=== PATIENT | female | born 1945 | race Caucasian/White ===

== ENCOUNTER → 2017-02-23 | Outpatient (CLI) | payer MEDICARE ==
[~2017-02-23] MED LIST: CALTTAB5 PO; COUM5TAB PO; DIPH1TAB36 PO; FOSA70TA PO; KONS520C PO; LEVO100T4 PO; NORC7.5T PO; OMEG120017 PO; OSTETAB2 PO; PROT40TA PO; RED600TA PO; ZOLP10TA3 PO
--- NOTE | 2017-02-23 15:44 | EKG ---
Date Performed: 02/23/2017 Time Performed: 10:07:58 PTAGE: 71 years EKG: Sinus rhythm . Poor R wave progression - probable normal variant Anterior T wave changes are nonspecific Low QRS v oltages in precordial leads Borderline ECG NO PREVIOUS TRACING DOCTOR: Karime Vizcaino Interpretating Date/Time 02/23/2017 15:43:04
== END ==
LOC: HCAV 09:56
PROVIDERS: ATTEND Orthopaedic Surgery Orthopaedic Surgery of the Spine
DX: Z01.810 Encounter for preprocedural cardiovascular examination (principal)
CPT/HCPCS: 93005

== ENCOUNTER 2017-03-05 12:24 | Inpatient (IN) | payer MEDICARE ==
[~2017-03-05] VITALS: Ht 157.5 cm; Wt 71.6 kg
[2017-03-05] VITALS (17 sets, daily range): BP systolic 105–212; BP diastolic 56–107; PULSE 53–88; RESP 16–32; TEMP 98–98.7; O2SAT 95–100
[2017-03-05] MEDS ORDERED: SODIUM CHLORIDE 0.9% FLUSH 10 ML FLUSH IVF PRN (12:30)
--- NOTE | 2017-03-05 12:30 | PD ---
HPI Chief Complaint: PALPITATIONS Time Seen by Provider: 12:27 Travel History International Travel<30 days: No Contact w/Intl Traveler<30days: No Traveled to known affect area: No History of Present Illness HPI PATIENT HAS BEEN EXPERIENCING SOME HEART RACING SENSATION ALONG CHEST HEAVINESS AND NOTED A HIGH BLOOD PRESSURE ON HER HOME MONITOR SO DECIDED TO COME IN AND BE EVALUATED. CHEST HEAVINESS SUBSTERNAL RADIATING TO BACK, 10/03, NO SYNCOPE, NO ALLEVIATING/AGGRAVATING FACTORS. 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 Past Medical History Cancer: No Cardiovascular Problems: Yes High Cholesterol: Yes Diabetes: No Endocrine: Yes Genitourinary: No Hepatitis: Yes (HEP A 2005) Hiatal Hernia: No Immune Disorder: Yes (FIBROMYALGIA) Musculoskeletal: Yes (OSTEOARTHRITIS, FIBROMYALGIA) Neurologic: No Psychiatric: No Reproductive: No Respiratory: No Thyroid Disease: Yes Past Surgical History Abdominal Surgery: Yes (LAP CHOLECYSTECTOMY 2009) AICD: No Gynecologic Surgery: Yes (MISCARRIAGES WITH D & C X 2, TUBAL LIGATION) Joint Replacement: Yes (R TOTAL KNEE) Pacemaker: No Thoracic Surgery: Yes (BREAST REDUCTION 1998) Social History Tobacco Use: No Substance Use: No Allergies-Medications (Allergen,Severity, Reaction): Coded Allergies: penicillin G (Unverified Allergy, Intermediate, HIVES, 11/08/16) atorvastatin (Unverified Adverse Reaction, Intermediate, SEVERE MUSCLE ACHES, 11/08/16) ALL STATINS Uncoded Allergies: STATINS (Adverse Reaction, Severe, SEVERE MUSCLE ACHES, 01/17/13) 01/17 VERIFIED Reported Meds & Prescriptions Reported Meds & Active Scripts Active Reported Ambien (Zolpidem Tartrate) 10 Mg Tab 10 Mg PO HS PRN Levothyroxine (Levothyroxine Sodium) 88 Mcg Tab 88 Mcg PO DAILY Protonix (Pantoprazole Sodium) 40 Mg Tab 40 Mg PO DAILY Review of Systems Except as stated in HPI: all other systems reviewed are Neg General / Constitutional: No: Fever Eyes: No: Visual changes HENT: No: Headaches Cardiovascular: Positive: Chest Pain or Discomfort, Palpitations Respiratory: No: Shortness of Breath Gastrointestinal: No: Abdominal Pain Genitourinary: No: Dysuria Musculoskeletal: No: Pain Skin: No Rash Neurologic: No: Weakness Psychiatric: No: Depression Endocrine: No: Polydipsia Hematologic/Lymphatic: No: Easy Bruising Physical Exam Narrative GENERAL: SKIN: Warm and dry. HEAD: Atraumatic. Normocephalic. EYES: Pupils equal and round. No scleral icterus. No injection or drainage. ENT: No nasal bleeding or discharge. Mucous membranes pink and moist. NECK: Trachea midline. No JVD. CARDIOVASCULAR: Regular rate and rhythm. RESPIRATORY: No accessory muscle use. Clear to auscultation. Breath sounds equal bilaterally. GASTROINTESTINAL: Abdomen soft, non-tender, nondistended. MUSCULOSKELETAL: Extremities without clubbing, cyanosis, or edema. No obvious deformities. NEUROLOGICAL: Awake and alert. No obvious cranial nerve deficits. Motor grossly within normal limits. Five out of 5 muscle strength in the arms and legs. Normal speech. PSYCHIATRIC: Appropriate mood and affect; insight and judgment normal. Data Data Last Documented VS Vital Signs Date Time Temp Pulse Resp B/P (MAP) Pulse Ox O2 Delivery O2 Flow Rate FiO2 03/05/17 14:10 68 18 181/90 (120) 96 Room Air 03/05/17 12:28 98.0 Orders Orders Electrocardiogram (03/05/17 12:27) B-Type Natriuretic Peptide (03/05/17 12:27) Ckmb (Isoenzyme) Profile (03/05/17 12:27) Complete Blood Count With Diff (03/05/17 12:27) Comprehensive Metabolic Panel (03/05/17 12:27) D-Dimer (03/05/17 12:27) Prothrombin Time / Inr (Pt) (03/05/17 12:27) Act Partial Throm Time (Ptt) (03/05/17 12:27) Troponin I (03/05/17 12:27) Lipase (03/05/17 12:27) Chest, Single Ap (03/05/17 12:27) Ecg Monitoring (03/05/17 12:27) Bilateral Bp Monitoring (03/05/17 12:27) Iv Access Insert/Monitor (03/05/17 12:27) Oximetry (03/05/17 12:27) Oxygen Administration (03/05/17 12:27) Sodium Chloride 0.9% Flush (Ns Flush) (03/05/17 12:30) Aspirin Chew (Aspirin Chew) (12/10/17 12:45) Morphine Inj (Morphine Inj) (03/05/17 12:45) Nitroglycerin 2% Oint (Nitroglycerin 2% (03/05/17 12:45) Metoprolol Tartrate Inj (Lopressor Inj) (03/05/17 12:45) Cta Thor Abd Aorta W Iv C W3d (03/05/17 12:44) Iohexol 350 Inj (Omnipaque 350 Inj) (03/05/17 13:38) Electrocardiogram (03/05/17 13:55) Morphine Inj (Morphine Inj) (03/05/17 14:15) Metoprolol Tartrate Inj (Lopressor Inj) (03/05/17 14:15) Admit To Inpatient (03/05/17 ) Vital Signs (Adult) RENETTA.Q4H (03/05/17 14:21) Station Repairer / Telemetry RENETTA.Q8H (03/05/17 14:21) Inpatient Certification (03/05/17 ) Admit Order (Ed Use Only) (03/05/17 14:26) Labs Laboratory Tests Test 03/05/17 12:48 White Blood Count 7.3 TH/MM3 Red Blood Count 4.92 MIL/MM3 Hemoglobin 13.6 GM/DL Hematocrit 43.0 % Mean Corpuscular Volume 87.3 FL Mean Corpuscular Hemoglobin 27.7 PG Mean Corpuscular Hemoglobin Concent 31.7 % Red Cell Distribution Width 14.9 % Platelet Count 277 TH/MM3 Mean Platelet Volume 8.4 FL Neutrophils (%) (Auto) 70.6 % Lymphocytes (%) (Auto) 21.0 % Monocytes (%) (Auto) 7.9 % Eosinophils (%) (Auto) 0.1 % Basophils (%) (Auto) 0.4 % Neutrophils # (Auto) 5.2 TH/MM3 Lymphocytes # (Auto) 1.5 TH/MM3 Monocytes # (Auto) 0.6 TH/MM3 Eosinophils # (Auto) 0.0 TH/MM3 Basophils # (Auto) 0.0 TH/MM3 CBC Comment DIFF FINAL Differential Comment Prothrombin Time 10.7 SEC Prothromb Time International Ratio 1.1 RATIO Activated Partial Thromboplast Time 22.9 SEC D-Dimer Quantitative (PE/DVT) 0.36 MG/L FEU Blood Urea Nitrogen 13 MG/DL Creatinine 0.80 MG/DL Random Glucose 83 MG/DL Total Protein 7.8 GM/DL Albumin 3.9 GM/DL Calcium Level 9.0 MG/DL Alkaline Phosphatase 61 U/L Aspartate Amino Transf (AST/SGOT) 19 U/L Alanine Aminotransferase (ALT/SGPT) 31 U/L Total Bilirubin 0.2 MG/DL Sodium Level 141 MEQ/L Potassium Level 3.6 MEQ/L Chloride Level 106 MEQ/L Carbon Dioxide Level 28.4 MEQ/L Anion Gap 7 MEQ/L Estimat Glomerular Filtration Rate 71 ML/MIN Total Creatine Kinase 81 U/L Troponin I LESS THAN 0.02 NG/ML B-Type Natriuretic Peptide 156 PG/ML Lipase 210 U/L MDM Medical Decision Making Medical Screen Exam Complete: Yes Emergency Medical Condition: Yes Medical Record Reviewed: Yes Interpretation(s) NSR 72, PAC'S, NONSPEC STT CHANGES, NO MAJOR STEMI PATTERN REPEAT EKG AT TIME OF 08/03 CP 1405: NSR 66, PAC'S, NO STEMI PATTERN Differential Diagnosis DYSRYTHMIA V CA V NONSTEMI V PNA V PTX V PE Narrative Course PATIENT INITIALLY WAS PAIN FREE AFTER NTG/MORPHINE COMBO HOWEVER HAD REPEAT EPISODE OF CHEST PAIN, REPEAT EKG DID NOT SHOW ANY STEMI PATTERN, PATIENT WAS REPEATED METOPROLOL AND MORPHINE ACHIEVING A DECREASE IN PAIN Critical Care Narrative CRITICAL CARE NOTE: With evaluation of the patient, labs, EKG, receipt of radiologic studies, administration of medications, reevaluation the patient and discussion of the patient with the admitting physicians, the total critical care time was [30] minutes. Time to perform other separately billable procedures was not included in the critical care time. Diagnosis Primary Impression: PALPITATIONS Additional Impressions: CP R/O CA Hypertensive urgency Admitting Information Admitting Physician Requests: Observation Ty Mcpherson MD Mar 05, 2017 12:30
[2017-03-05] MEDS ORDERED: LEVO88TA2 PO (12:36)
[2017-03-05] MEDS ORDERED: PROT40TA PO (12:36)
[2017-03-05] MEDS ORDERED: AMBI10TA PO (12:37)
--- NOTE | 2017-03-05 12:42 | RADRPT ---
EXAM DATE/TIME: 03/05/2017 12:33 [facility] COMPARISON: No previous studies available for comparison. INDICATIONS : Chest pain, elevated blood pressure MEDICAL HISTORY : None. SURGICAL HISTORY : Total knee replacement, right. ENCOUNTER: Initial ACUITY: 2 days PAIN SCORE: 3/10 LOCATION: Bilateral chest FINDINGS: A single view of the chest demonstrates the lungs to be symmetrically aerated without evidence of mas s, infiltrate or effusion. The cardiomediastinal contours are unremarkable. Osseous structures are intact. CONCLUSION: No evidence of acute cardiopulmonary disease. Andrae Fuller MD on March 05, 2017 at 12:40 Board Certified Radiologist. This report was verified electronically.
[2017-03-05] MEDS ORDERED: NITROGLYCERIN 2% OINT 1 GM PACKET TOP ONE (12:45)
[2017-03-05] MEDS ORDERED: MORPHINE SULFATE 4 MG/ML INJ IV PUSH ONE ×2 (12:45→14:15)
[2017-03-05] MEDS ORDERED: ASPIRIN 81 MG CHEW TAB PO ONE (12:45)
[2017-03-05] MEDS ORDERED: METOPROLOL TARTRATE 5 MG/5 ML VIAL IV PUSH ONE ×2 (12:45→14:15)
[2017-03-05 12:58] LABS: AUTOMATED NEUTROPHIL # 5.2 TH/MM3 (1.8-7.7); BASOPHIL % 0.4 % (0.0-2.0); EOSINOPHIL % 0.1 % (0.0-4.0); HEMO FLAGS DIFF FINAL; LYMPHOCYTE # 1.5 TH/MM3 (1.0-4.8); MEAN CELL VOLUME 87.3 FL (80.0-100.0); MEAN CORPUSCULAR HEMOGLOBIN 27.7 PG (27.0-34.0); MEAN CORPUSCULAR HGB CONC 31.7 % (32.0-36.0); MONO % 7.9 % (0.0-8.0); NEUT % 70.6 % (16.0-70.0); PLATELET COUNT 277 TH/MM3 (150-450); RED BLOOD COUNT 4.92 MIL/MM3 (4.00-5.30); RED CELL DISTRIBUTION WIDTH 14.9 % (11.6-17.2); WHITE BLOOD COUNT 7.3 TH/MM3 (4.0-11.0)
[2017-03-05 13:00] LABS: CHLORIDE 106 MEQ/L (98-107); POTASSIUM 3.6 MEQ/L (3.5-5.1); SODIUM (NA) 141 MEQ/L (136-145)
[2017-03-05 13:04] LABS: ANION GAP 7 MEQ/L (5-15); BICARBONATE 28.4 MEQ/L (21.0-32.0); BLOOD UREA NITROGEN 13 MG/DL (7-18)
[2017-03-05 13:07] LABS: ALT (GPT) 31 U/L (10-53); APTT (PATIENT) 22.9 SEC (24.3-30.1); AST (GOT) 19 U/L (15-37); GLOMERULAR FILTRATION RATE 71 ML/MIN (>89); INTERNATIONAL NORMALIZED RATIO 1.1 RATIO; PROTHROMBIN TIME - PATIENT 10.7 SEC (9.8-11.6)
[2017-03-05 13:08] LABS: TOTAL BILIRUBIN ADULT 0.2 MG/DL (0.2-1.0)
[2017-03-05 13:09] LABS: ALKALINE PHOSPHATASE 61 U/L (45-117)
[2017-03-05 13:11] LABS: CREATINE KINASE 81 U/L (26-192)
[2017-03-05] MEDS ORDERED: IOHEXOL 350 MG/ML 10 ML VIAL (for RAD DIAG) IVCONTRAST ONE (13:38)
--- NOTE | 2017-03-05 14:00 | RADRPT ---
EXAM DATE/TIME: 03/05/2017 13:18 [facility] COMPARISON: No previous studies available for comparison. INDICATIONS : Chest heaviness. Evaluate for aortic dissection. IV CONTRAST: 85 cc Omnipaque 350 (iohexol) IV RADIATION DOSE: 16.29 CTDIvol (mGy) MEDICAL HISTORY : Gastroesophageal reflux disease. Ulcers. Gastritis. SURGICAL HISTORY : Cholecystectomy. ENCOUNTER: Initial ACUITY: 1 day PAIN SCALE: 5/10 LOCATION: Left chest TECHNIQUE: Volumetric scanning was performed using a multi-row detector CT scanner. The data was post processed with a variety of visualization algorithms including full volume maximum intensity projection, multi -planar sliding thin slab reformation, curved planar reformation, and surface rendering techniques. Using automated exposure control and adjustment of the mA and/or kV according to patient size, radiat ion dose was kept as low as reasonably achievable to obtain optimal diagnostic quality images. DICOM format image data is available electronically for review and comparison. FINDINGS: LUNGS: There is no consolidation or pneumothorax. No concerning pulmonary nodule is visualized. No pleural fluid is present. MEDIASTINUM: No abnormally enlarged lymph nodes by CT criteria. No axillary or hilar abnormalities are identified. ABDOMEN: The liver and spleen are free of focal defects. The pancreas demonstrate no abnormality. The adrenal glands are normal. The kidneys demonstrate no evidence of solid renal mass or hydronephrosis. No free fluid or abdominal masses are identified. No para-aortic adenopathy is seen. Status post cholecystec johnny. PELVIS: No evidence of free fluid or pelvic mass. No abnormally enlarged inguinal or retroperitoneal lymph no tab are present. The bladder is unremarkable. THORACIC AORTA: The thoracic aortic root is normal with normal branching of the great vessels. There is no evidence of aneurysm or dissection. ABDOMINAL AORTA: The aorta is normal in caliber without aneurysm or dissection. The renal arteries are patent bilater ally. The proximal celiac and superior mesenteric arteries are patent and normal in diameter. PELVIC VESSELS: The internal iliac and external iliac vessels are patent without aneurysm or stenosis. CONCLUSION: Unremarkable examination. Specifically, no evidence of aortic dissection. Salo Jimenez MD on March 05, 2017 at 13:55 Board Certified Radiologist. This report was verified electronically.
[2017-03-05] MEDS ORDERED: niCARdipine INJ 25 MG in SODIUM CHLOR 0.9% 250 ML INJ 240 ML IV PRN (15:00)
[2017-03-05] MEDS ORDERED: SODIUM CHLORID 0.9% 500 ML INJ 500 ML IV ONE (15:00)
--- NOTE | 2017-03-05 15:03 | HHI.HP ---
[facility] Service [facility] Primary Care Physician Unknown Admission Diagnosis CP R/O [place], HYPERTENSIVE URGENCY Diagnoses: Chief Complaint: chest pressure, flushing Travel History International Travel<30 Days: No Contact w/Intl Traveler <30 Da: No Traveled to Known Affected Are: No History of Present Illness 71-year-old white female being admitted for hypertensive emergency and chest pressure. Patient was in her usual state of health until 3 days ago when she underwent her right knee arthroscopy. The next day she reports feeling a flushed sensation all throughout her face and upper torso; she also said that her face appeared red. She says she checked her blood pressure at home and the systolic was greater than 180. Over the next 2 days her blood pressures remained high including hitting the 200s systolic and she eventually developed some intermittent chest pressure that felt like an ache that radiated to her back; she took some aspirin to no further relief. She denies any nausea or vomiting. The emergency room, the patient's pressures were well over 200 systolic on multiple readings. She was given nitroglycerin with substantial relief of her chest pressure and morphine which completely knocked out her pain. She has also underwent an aorta CTA since emergency room doctor was somewhat concerned about a possible aortic dissection but this was negative. Review of Systems Except as stated in HPI: all other systems reviewed are Neg Past Family Social History Past Medical History Fibromyalgia Arthritis Past Surgical History Left knee surgery, right knee arthroscopy Allergies: Coded Allergies: penicillin G (Unverified Allergy, Intermediate, HIVES, 11/08/16) atorvastatin (Unverified Adverse Reaction, Intermediate, SEVERE MUSCLE ACHES, 11/08/16) ALL STATINS Uncoded Allergies: STATINS (Adverse Reaction, Severe, SEVERE MUSCLE ACHES, 01/17/13) 01/17 VERIFIED Family History Hypertension, strokes, macular degeneration Social History Denies smoking, any illicit drug use, reports very mild light occasional rare alcohol use Physical Exam Vital Signs Vital Signs Date Time Temp Pulse Resp B/P (MAP) Pulse Ox O2 Delivery O2 Flow Rate FiO2 03/05/17 14:10 68 18 181/90 (120) 96 Room Air 03/05/17 13:33 88 16 188/103 (131) 98 Room Air 03/05/17 12:38 88 16 209/99 (135) 99 Room Air 212/107 (142) 03/05/17 12:37 99 Room Air 03/05/17 12:37 100 Room Air 03/05/17 12:31 16 96 Room Air 03/05/17 12:28 98.0 80 16 209/99 (135) 96 Physical Exam VS: Afebrile GENERAL: Elderly white female, well-nourished, no acute distress SKIN: Warm and dry. EYES: Pupils equal and round. No scleral icterus. No injection or drainage. ENT: No nasal bleeding or discharge. Mucous membranes pink and moist. CARDIOVASCULAR: Regular rate and rhythm. no murmurs RESPIRATORY: No accessory muscle use. Clear to auscultation. GASTROINTESTINAL: Abdomen soft, non-tender, nondistended. Extremities: No clubbing, cyanosis, or edema. No obvious deformities. MUSCULOSKELETAL: No obvious deformities. grossly intact ROM with 5/5 strength in upper and lower extremities proximally. Has diffuse mild TTP over anterior chest wall BL which the pt attributes to her fibromyalgia NEUROLOGICAL: Awake and alert. No obvious cranial nerve deficits. No facial droop nor slurred speech noted. PSYCHIATRIC: Appropriate mood and affect; insight and judgment normal. Laboratory Laboratory Tests Test 03/05/17 12:48 White Blood Count 7.3 Red Blood Count 4.92 Hemoglobin 13.6 Hematocrit 43.0 Mean Corpuscular Volume 87.3 Mean Corpuscular Hemoglobin 27.7 Mean Corpuscular Hemoglobin Concent 31.7 Red Cell Distribution Width 14.9 Platelet Count 277 Mean Platelet Volume 8.4 Neutrophils (%) (Auto) 70.6 Lymphocytes (%) (Auto) 21.0 Monocytes (%) (Auto) 7.9 Eosinophils (%) (Auto) 0.1 Basophils (%) (Auto) 0.4 Neutrophils # (Auto) 5.2 Lymphocytes # (Auto) 1.5 Monocytes # (Auto) 0.6 Eosinophils # (Auto) 0.0 Basophils # (Auto) 0.0 CBC Comment DIFF FINAL Differential Comment Prothrombin Time 10.7 Prothromb Time International Ratio 1.1 Activated Partial Thromboplast Time 22.9 D-Dimer Quantitative (PE/DVT) 0.36 Blood Urea Nitrogen 13 Creatinine 0.80 Random Glucose 83 Total Protein 7.8 Albumin 3.9 Calcium Level 9.0 Alkaline Phosphatase 61 Aspartate Amino Transf (AST/SGOT) 19 Alanine Aminotransferase (ALT/SGPT) 31 Total Bilirubin 0.2 Sodium Level 141 Potassium Level 3.6 Chloride Level 106 Carbon Dioxide Level 28.4 Anion Gap 7 Estimat Glomerular Filtration Rate 71 Total Creatine Kinase 81 Troponin I LESS THAN 0.02 B-Type Natriuretic Peptide 156 Lipase 210 Result Diagram: 03/05/17 1248 03/05/17 1248 Caprini VTE Risk Assessment Caprini VTE Risk Assessment: Mod/High Risk (score >= 2) Caprini Risk Assessment Model Point Value = 1 Point Value = 2 Point Value = 3 Point Value = 5 Age 41-60 Minor surgery BMI > 25 kg/m2 Swollen legs Varicose veins or History of unexplained or recurrent spontaneous Oral contraceptives or hormone replacement Sepsis (< 1 month) Serious lung disease, including pneumonia (< 1 month) Abnormal pulmonary function Acute myocardial infarction Congestive heart failure (< 1 month) History of inflammatory bowel disease Medical patient at bed rest Age 61-74 Arthroscopic surgery Major open surgery (> 45 min) Laparoscopic surgery (> 45 min) Malignancy Confined to bed (> 72 hours) Immobilizing plaster cast Central venous access Age >= 75 History of VTE Family history of VTE Factor V Leiden Prothrombin [id number] Lupus anticoagulant Anticardiolipin antibodies Elevated serum homocysteine Heparin-induced thrombocytopenia Other congenital or acquired thrombophilia Stroke (< 1 month) Elective arthroplasty Hip, pelvis, or leg fracture Acute spinal cord injury (< 1 month) Prophylaxis Regimen Total Risk Factor Score Risk Level Prophylaxis Regimen 0-1 Low Early ambulation 2 Moderate Order ONE of the following: *Sequential Compression Device (SCD) *Heparin 5000 units SQ BID 3-4 Higher Order ONE of the following medications: *Heparin 5000 units SQ TID *Enoxaparin/Lovenox 40 mg SQ daily (WT < 150 kg, CrCl > 30 mL/min) *Enoxaparin/Lovenox 30 mg SQ daily (WT < 150 kg, CrCl > 10-29 mL/min) *Enoxaparin/Lovenox 30 mg SQ BID (WT < 150 kg, CrCl > 30 mL/min) AND/OR *Sequential Compression Device (SCD) 5 or more Highest Order ONE of the following medications: *Heparin 5000 units SQ TID (Preferred with Epidurals) *Enoxaparin/Lovenox 40 mg SQ daily (WT < 150 kg, CrCl > 30 mL/min) *Enoxaparin/Lovenox 30 mg SQ daily (WT < 150 kg, CrCl > 10-29 mL/min) *Enoxaparin/Lovenox 30 mg SQ BID (WT < 150 kg, CrCl > 30 mL/min) AND *Sequential Compression Device (SCD) Assessment and Plan Problem List: (1) Hypertensive emergency ICD Code: I16.1 - Hypertensive emergency (2) Chest pressure ICD Code: R07.89 - Other chest pain Assessment and Plan 71-year-old white female admitted for hypertensive emergency Hypertensive emergency with end organ damage being headache - Starting nicardipine drip and will start oral nifedipine - Cardiac telemetry Chest pressure - Most likely from elevated blood pressures - I independently reviewed EKG which is showing normal sinus rhythm with occasional PVCs - We'll trend troponins which are so far negative, we will make the patient. After midnight in case she has worsening of her pain or her pain is more argumentative for possible ACS at which point we will consider nuclear stress test tomorrow if warranted. - aspirin Diet Lovenox for DVT prevention Physician Certification 2 Midnight Certification Type: Admission for Inpatient Services Order for Inpatient Services The services are ordered in accordance with Medicare regulations or non- Medicare payer requirements, as applicable. In the case of services not specified as inpatient-only, they are appropriately provided as inpatient services in accordance with the 2-midnight benchmark. Estimated LOS (days): 2 2 days is the estimated time the patient will need to remain in the hospital, assuming treatment plan goals are met and no additional complications. Post-Hospital Plan: Home Emmanuel Schaffer MD Mar 05, 2017 15:03
[2017-03-05] MEDS ORDERED: ENOXAPARIN SODIUM 30 MG/0.3 ML SYRINGE SQ SCH (16:00)
[2017-03-05] MEDS ORDERED: CHLORHEXIDINE GLUCONATE 2 % 1 PACK (2 CLOTHS)(extra cloths) TOPICAL PRN (18:15)
[2017-03-05] MEDS: NIFEdipine 10 MG CAP PO SCH (19:05)
[2017-03-05] MEDS ORDERED: tylenol pm (19:16)
[2017-03-05] MEDS ORDERED: ACETAMINOPHEN 500 MG CPLT PO PRN (21:45)
[2017-03-05] MEDS ORDERED: ZOLPIDEM TARTRATE 5 MG TAB PO PRN (21:45)
[2017-03-05] MEDS ORDERED: diphenhydrAMINE HCL 25 MG CAP PO PRN (21:45)
[2017-03-06] VITALS (15 sets, daily range): BP systolic 104–193; BP diastolic 57–96; PULSE 52–80; RESP 14–36; TEMP 97.6–98.4; O2SAT 97
[2017-03-06] MEDS: NIFEdipine 10 MG CAP PO SCH (01:00)
[2017-03-06] MEDS ORDERED: CHLORHEXIDINE GLUCONATE 2 % 1 PACK (2 CLOTHS)(taper/protocol) TOPICAL SCH (04:00)
[2017-03-06] MEDS ORDERED: NIFEdipine 20 MG CAP PO SCH (09:00)
--- NOTE | 2017-03-06 12:08 | RADRPT ---
EXAM DATE/TIME: 03/06/2017 10:11 [facility] COMPARISON: No previous studies available for comparison. INDICATIONS : Substernal chest pain radiating to the back. Angina. DOSE: 26.7 mCi Tc99m Myoview at stress. 8.8 mCi Tc99m Myoview at rest. 0.4 mg Lexiscan STRESS SYMPTOMS: Dyspnea and chest pressure. EJECTION FRACTION: > 70% MEDICAL HISTORY : Hypercholesterolemia. Gastroesophageal reflux disease. SURGICAL HISTORY : Cholecystectomy. Total knee replacement, right. ENCOUNTER: Initial ACUITY: 1 day PAIN SCALE: 7/10 LOCATION: Substernal chest TECHNIQUE: The patient underwent pharmacologic stress with infusion of prescribed dose. Continuous ECG tracing was monitored during stress. Gated SPECT imaging was performed after stress and conventional SPECT i maging was performed at rest. The examination was performed on a SPECT/CT scanner, both attenuation and non-corrected datasets were reviewed. FINDINGS: DISTRIBUTION: The maximum perfused segment at stress is in the septal wall. PERFUSION STUDY: The pattern of perfusion at stress is within normal limits. GATED STUDY: There is intact wall motion and thickening without hypokinetic or dyskinetic segments. CONCLUSION: 1. No reversible perfusion defects to suggest ischemia. 2. Ejection fraction 70%. RISK CATEGORY: Low (<1% Annual Mortality Rate) Enrique Kelly MD on March 06, 2017 at 12:06 Board Certified Radiologist. This report was verified electronically.
[2017-03-06] MEDS ORDERED: NIFE10 PO (12:31)
--- NOTE | 2017-03-06 12:32 | HHI.DCPOC ---
Discharge Care Plan Diagnosis: (1) Hypertensive urgency (2) Chest pressure Goals to Promote Your Health * To prevent worsening of your condition and complications * To maintain your health at the optimal level Directions to Meet Your Goals Take your medications as prescribed Follow your dietary instruction Follow activity as directed Keep your appointments as scheduled Take your immunizations and boosters as scheduled If your symptoms worsen call your PCP, if no PCP go to Urgent Care Center or Emergency Room Smoking is Dangerous to Your Health. Avoid second hand smoke Call the 24-hour hour crisis hotline for domestic abuse at Dwayne Prince Mar 06, 2017 12:32
--- NOTE | 2017-03-06 13:07 | HHI.PR ---
Subjective Remarks Nursing denies any deterioration since last night. She actually never needed the nicardipine drip as her blood pressure remained stable. Patient says she still has a mild headache even though her blood pressure is much improved. Denies any nausea. Objective Vital Signs Date Time Temp Pulse Resp B/P (MAP) Pulse Ox O2 Delivery O2 Flow Rate FiO2 03/06/17 12:00 54 03/06/17 11:00 80 15 146/75 (98) 03/06/17 10:00 78 03/06/17 09:15 64 25 162/75 (104) 03/06/17 09:00 76 03/06/17 08:15 78 32 193/96 (128) 03/06/17 08:00 64 03/06/17 08:00 97.9 70 22 181/85 (117) 97 03/06/17 07:00 76 36 153/81 (105) 03/06/17 06:00 59 03/06/17 05:01 60 03/06/17 04:15 98.4 54 14 111/60 (77) 03/06/17 03:15 52 15 104/57 (73) 03/06/17 02:33 62 03/06/17 02:16 70 20 117/65 (82) 03/06/17 00:00 97.6 72 16 108/57 (74) 03/06/17 00:00 72 03/05/17 23:00 74 27 114/56 (75) 03/05/17 22:00 70 03/05/17 22:00 70 17 105/56 (72) 03/05/17 21:07 82 22 108/59 (75) 03/05/17 20:00 98.7 66 18 109/64 (79) 95 03/05/17 20:00 53 03/05/17 19:15 74 27 130/63 (85) 03/05/17 19:00 72 22 138/64 (88) 03/05/17 18:45 68 22 126/69 (88) 03/05/17 18:30 70 20 118/67 (84) 03/05/17 18:15 72 32 112/73 (86) 03/05/17 18:00 57 03/05/17 16:17 64 03/05/17 16:00 68 16 154/75 (101) 95 03/05/17 15:26 03/05/17 14:10 68 18 181/90 (120) 96 Room Air 03/05/17 13:33 88 16 188/103 (131) 98 Room Air I/O 03/05/17 03/05/17 03/05/17 03/06/17 03/06/17 03/06/17 07:00 15:00 23:00 07:00 15:00 23:00 Intake Total 1320 ml 120 ml Balance 1320 ml 120 ml Intake Oral 320 ml 120 ml IV Total 1000 ml # Voids 2 1 # Bowel Movements 0 Result Diagram: 03/05/17 1248 03/05/17 1248 Objective Remarks Heart sounds are regular rate and rhythm, no murmurs Unlabored breathing, clear lungs bilaterally White female in no acute distress A/P Assessment and Plan Hypertensive emergency has resolved Given atypical chest pressures - nuclear stress test was performed which was unremarkable. We'll give the patient naproxen for her mild headache and discharge her with close PCP follow-up to monitor her blood pressure while starting her on a new low dose calcium channel alanna. Patient has verbalized understanding. Patient has met maximum benefit from hospitalization and is clinically stable for discharge. Emmanuel Schaffer MD Mar 06, 2017 13:07
[2017-03-06] MEDS ORDERED: NAPROXEN 500 MG TAB PO ONE (13:30)
[2017-03-06] MEDS ORDERED: REGADENOSON INJ 0.4 MG/5 ML SYR IV ONE (14:29)
--- NOTE | 2017-03-06 19:00 | EKG ---
Date Performed: 03/05/2017 Time Performed: 12:29:57 PTAGE: 71 years EKG: Sinus rhythm WITH OCCASIONAL SUPRAVENTRICULAR PREMATURE COMPLEXES MINIMAL ST DEPRESSION BORDERLINE ECG PREVIOUS TRACING : 02/23/2017 10.07 Compared to prior tracing no significant change DOCTOR: Jeff Patel Interpretating Date/Time 03/06/2017 18:59:24
--- NOTE | 2017-03-06 19:01 | EKG ---
Date Performed: 03/05/2017 Time Performed: 14:05:32 PTAGE: 71 years EKG: Sinus rhythm WITH OCCASIONAL ECTOPIC PREMATURE COMPLEXES BORDERLINE ECG PREVIOUS TRACING : 03/05/2017 12.29 Compared to prior tracing no significant change DOCTOR: Jeff Patel Interpretating Date/Time 03/06/2017 19:00:40
--- NOTE | 2017-03-07 07:19 | TR ---
Date Performed: 03/06/2017 Time Performed: 10:36:02 DOCTOR: Elizabeth Cespedes DRUG LIST: CLINICAL HISTORY: REASON FOR TEST: Chest pain REASON FOR ENDING: OBSERVATION: CONCLUSION: Lexiscan stress test was performed under standard four minute protocol. Radionuclid e was injected one minute prior to ending the test. No electrocardiographic abormalities were present to suggest ischemia. Nuclear imaging and interpretation are pending. COMMENTS:
[2017-03-07] MEDS ORDERED: DIPH25TA31 PO (10:43)
== END 2017-03-06 13:32 | disposition home or self-care (01) | DRG 305 ==
LOC: PHED 12:24 → PHEDA 14:28 → OBSVTOIN 14:28 → PHICU 15:27
PROVIDERS: ADMIT Hospitalist; ATTEND Hospitalist
DX: I16.1 Hypertensive emergency (principal); I49.3 Ventricular premature depolarization; R07.89 Other chest pain; M19.90 Unspecified osteoarthritis, unspecified site; M79.7 Fibromyalgia; Z96.651 Presence of right artificial knee joint; Z88.0 Allergy status to penicillin
CPT/HCPCS: 71010; 71275; 74174; 78452; 80053; 82550; 83690; 83880; 84484; 85025; 85379; 85610; 85730; 87641; 93005; 93017; A9502; J1650; J2270; J2785; J7040; Q9967

== ENCOUNTER 2017-11-13 11:20 | Inpatient (IN) ==
[~2017-11-13 11:20] MED LIST changes: -CALTTAB5 PO; -COUM5TAB PO; -DIPH1TAB36 PO; -FOSA70TA PO; +Famotidine PF Inj 20 MG/2 ML Vial ONE; -KONS520C PO; -LEVO100T4 PO; -NORC7.5T PO; -OMEG120017 PO; -OSTETAB2 PO; -PROT40TA PO; -RED600TA PO; -ZOLP10TA3 PO; +fentaNYL Citrate Inj 100 MCG/2 ML Ampul ONE; +fentaNYL Citrate Inj 250 MCG/5 ML Ampul ONE
[2017-11-13] MEDS ORDERED: Bupivacaine Liposomal PF 1.3% Inj 20 ML Vial ONE (11:42)
[2017-11-13] MEDS ORDERED: ceFAZolin 2 GM Premix Inj 2 GM/100 ML BAG IV.SIG SCH (11:56)
[2017-11-13] MEDS ORDERED: Metoprolol Tartrate 25 MG Tablet PO SCH (12:00)
[2017-11-13] MEDS ORDERED: Chlorhexidine 4% Topical 120 APPLIC/120 ML Bottle TOPICAL SCH (12:00)
[2017-11-13] MEDS ORDERED: Vancomycin Inj 1,000 MG in Sodium Chlor 0.9% Inj 250 ML IV.SIG SCH (12:00)
[2017-11-13] MEDS ORDERED: Chlorhexidine Gluconate 2% 1 Pack (2 Cloths) TOPICAL SCH (12:00)
[2017-11-13] MEDS ORDERED: Sodium Chlor 0.9% Inj 500 ML IV.SIG SCH (12:00)
[2017-11-13] MEDS: fentaNYL Citrate Inj 100 MCG/2 ML Ampul ONE ×2 (12:45→13:15)
[2017-11-13] MEDS ORDERED: Bupivacaine/Dextrose 0.75% Inj 2 ML Ampul ONE (12:56)
[2017-11-13] MEDS ORDERED: Propofol Inj 500 MG/50 ML Vial ONE (12:57)
[2017-11-13] MEDS ORDERED: Phenylephrine/NS 1000 MCG/10ML Syringe IV.PUSH ONE (13:05)
[2017-11-13] MEDS ORDERED: Lidocaine PF 1% Inj 5 ML Syringe INFILTRATN ONE (13:05)
[2017-11-13] MEDS ORDERED: Sodium Chlor 0.9% Inj 73.07 ML, Ropivacaine 0.5% PF Inj 24.63 ML, Ketorolac Inj 30 MG, ... P-ARTICULR SCH ×5 (14:00)
--- NOTE | 2017-11-13 15:17 | P.BOP ---
Date of procedure: 11/13/17 Procedure: L TKR Anesthesia: regional, local, spinal Surgeon: Tay Tolbert MD Candy Counter Clerk: Mirian Inman Estimated blood loss (mL): 25 Tourniquet time (min): 63 Pathology: none sent Condition: stable Disposition: PACU
[2017-11-13] MEDS ORDERED: Bisacodyl 10 MG Supp RECTAL PRN (15:23)
[2017-11-13] MEDS ORDERED: Post-op Orders (for Pharmacy) OTHER STA (15:23)
--- NOTE | 2017-11-13 15:30 | P.DCO ---
- Physical Therapy Physical Therapy: Gait training, Transfer training, bed to chair Knee: Total knee, Protocol: Left, Full weight bearing Canvas Knee Splint: When in bed with 2 pillows between thighs Right Lower Extremity Weight Bearing: Weight bearing as tolerated Left Lower Extremity Weight Bearing: Weight bearing as tolerated - Nursing RN: 3 days/week x 2 weeks Nursing: Dressing changes (clean incision with alcohol and apply dry sterile dressing ) - Certification Need for Home Health services: I have seen patient Nelson Smith on 11/13/17. My clinical findings support the need for the requested home health care services because: Need for Home Health Services: Deconditioned with increased weakness, High risk of falls Homebound Certification: I certify that my clinical findings support that this patient is homebound because: Homebound Certification: Post-op weakness
[2017-11-13] MEDS ORDERED: *Meperidine Inj 25 MG/ML Vial PERIprocedural Use ONLY ONE (15:37)
--- NOTE | 2017-11-13 15:49 | XR ---
EXAM DATE: 11/13/2017 3:40 PM EDT AGE/SEX: 72 years / Female INDICATIONS: Post left knee replacement CLINICAL DATA: This is the patient's initial encounter. Patient reports that signs and symptoms have been present for 1 day and indicates a pain score of 0/10. MEDICAL/SURGICAL HISTORY: Arthritis. Total knee replacement, right. COMPARISON: POI, MR KNEE W/O CONTRAST, LEFT, 11/25/2016. . FINDINGS: Left knee arthroplasty in place. Arthroplasty components are in anatomic alignment. No acute bony fra cture. Immediate postsurgical soft tissue features with surgical drains in place. CONCLUSION: 1. Left knee arthroplasty in anatomic alignment without acute fracture. Electronically signed by: Marcos Wagner MD 11/13/2017 3:47 PM EDT
--- NOTE | 2017-11-13 16:21 | MP ---
cc: Tay Tolbert MD,Stefanie Zendejas MD, MD,Valencia NAVAS DATE OF OPERATION: 11/13/2017 PREOPERATIVE DIAGNOSIS: Left knee osteoarthritis. POSTOPERATIVE DIAGNOSIS: Left knee osteoarthritis. PROCEDURE PERFORMED: Left total knee arthroplasty, cemented [employer]-V[employer]. SURGEON: Tay Tolbert MD FOLDER OPERATOR: Mirian Inman PA-C ANESTHESIA: Spinal, regional adductor canal block, intra-articular block, intra-articular anesthesia. ESTIMATED BLOOD LOSS: Less than 25 mL. TOURNIQUET TIME: 62 minutes at 250 mmHg. COMPLICATIONS: None. NOTE: My cement tester assistant, Mirian Inman PA-C, was present for the entire surgical case. She was medically necessary for the entire case because of the complexity of the case and to facilitate the performance of the procedure. The ROOF FOREMAN at the back table was not of the skill set for this case to manipulate the instruments, e.g. multiple different soft tissue retractors, trial implants and permanent implants, including methyl methacrylate. DESCRIPTION OF PROCEDURE: The patient was brought to the operating room and had satisfactory anesthesia by the Department of Anesthesia. The left lower extremity was prepped and draped in the usual sterile manner. The extremity was exsanguinated by elevation and tourniquet inflated to 200 mmHg. A small anterior incision to the knee was made. All bleeders were coagulated. Dissection was carried through the skin and soft tissue. A paramedian capsulotomy was performed. The patient was found to have osteoarthritis involving all 3 compartments of the knee. The remaining portions of the medial meniscus and lateral meniscus were removed. The anterior cruciate ligament was removed. The prepatellar fat pad was surgically excised. The posterior cruciate ligament was preserved. Using the Bi[employer]-Vanguard total knee arthroplasty system, IM guide was used for the distal femur 5-degree valgus cut to accept a 62.5 mm femoral component. The extramedullary guide was used for the tibia to accept a 67 mm tibial component. Appropriate balancing of the knee was made with both flexion and extension. The knee was found well balanced with a 10 mm insert in both flexion and extension. The undersurface of the patella was removed to accept a 31 mm 3-prong patellar prosthesis. All trial components were removed. Preparation for cementing was made. The knee was anesthetized with 100 mL of local anesthesia provided by the Department of Pharmacy. Two packages of Palacos bone cement were used for bone cement. First, the tibial component was cemented, which was a 67 mm tibial component. The femoral component was cemented, which was a 62.5 mm femoral component with a 10 x 76 tibial component. The undersurface of the patella was cemented using a 31 patella 3-prong prosthesis. All excess bone cement was removed. The bone cement was allowed to harden for 12 minutes. The knee was irrigated with 4000 mL of sterile saline antibiotic solution. The wound itself was dry. The 10 x 76 mm tibial polyethylene plastic was hammered onto the tibial tray with the appropriate locking mechanism. The tourniquet was deflated. All bleeders were coagulated. The wound itself was dry. It was irrigated with copious amounts of sterile antibiotic solution. A lateral retinacular release was performed. The patella was found to move well within the patellofemoral compartment. The wound was closed over two 1/8 inch Hemovac drains. The extensor mechanism and capsule were repaired using multiple interrupted #2 Ti-Cron sutures. The subcutaneous tissue was closed in layers with 0 Vicryl and 2-0 Vicryl. The skin was approximated using interrupted stainless steel skin clips. Sterile dressings were applied. The patient tolerated the procedure well and went to the recovery room in stable and satisfactory condition. MD PAULO Nelson/awa , 03:24 PM , 03:36 PM
[2017-11-13] MEDS ORDERED: fentaNYL Citrate Inj 100 MCG/2 ML Ampul ONE (19:15)
[2017-11-13] MEDS: Morphine Inj 4 MG/ML Vial IV.PUSH PRN (19:53)
[2017-11-13] MEDS: Acetaminophen 500 MG Tablet PO SCH (21:07)
[2017-11-13] MEDS: Senna/Docusate Sodium 8.6/50 MG Tablet PO SCH (21:08)
[2017-11-13] MEDS: Zolpidem Tartrate 5 MG Tablet PO SCH (21:08)
[2017-11-14] MEDS: Morphine Inj 4 MG/ML Vial IV.PUSH PRN (03:05)
[2017-11-14] MEDS: Levothyroxine 88 MCG Tablet PO SCH (06:02)
--- NOTE | 2017-11-14 07:00 | P.PNOP ---
Subjective Interval history: POD# 1 L TKR No SOB;No chest pain Explained operative findings;answered multiple questions Physical Exam Vital signs: Vital Signs 11/13/17 12:25 11/13/17 15:22 11/13/17 15:30 Temperature 98.2 F 97.4 F L Pulse Rate 70 77 72 Respiratory Rate 18 20 18 Blood Pressure 145/73 H 114/58 L 128/65 Pulse Oximetry 98 99 99 11/13/17 15:45 11/13/17 16:00 11/13/17 16:02 Temperature 97.3 F L Pulse Rate 74 56 L Respiratory Rate 21 18 Blood Pressure 117/62 131/68 Pulse Oximetry 99 99 99 11/13/17 16:06 11/13/17 16:15 11/13/17 16:30 Temperature Pulse Rate 67 64 Respiratory Rate 16 15 19 Blood Pressure 120/65 119/65 Pulse Oximetry 99 99 11/13/17 16:45 11/13/17 18:06 11/13/17 19:49 Temperature 97.6 F Pulse Rate 63 60 Respiratory Rate 17 18 Blood Pressure 123/69 156/73 H Pulse Oximetry 99 11/13/17 19:55 11/13/17 20:00 11/13/17 21:37 Temperature 97.2 F L Pulse Rate 67 Respiratory Rate 18 17 17 Blood Pressure 132/71 Pulse Oximetry 96 11/14/17 00:00 11/14/17 01:07 11/14/17 02:02 Temperature 97.5 F L Pulse Rate 63 Respiratory Rate 18 18 18 Blood Pressure 102/56 L Pulse Oximetry 98 11/14/17 03:15 11/14/17 06:00 Temperature 97.6 F Pulse Rate 59 L Respiratory Rate 18 17 Blood Pressure 118/60 Pulse Oximetry 98 Intake & Output 11/13/17 11/13/17 11/14/17 06:59 18:59 06:59 Intake Total 1850 / 1850 100 / 100 Output Total 105 / 105 40 / 40 Balance 1745 / 1745 60 / 60 Weight 63.5 kg Intake: IV 1350 / 1350 100 / 100 LR 1000 mL Inj 1,000 ML @ 30 1000 / 1000 mls/hr IV.SIG .Q24H [facility] Rx#: [id number] Vancomycin Inj 1,000 MG In NS 250 / 250 Inj 250 ML @ 250 mls/hr IV.SIG [employer] [facility] Rx#:[id number] Ancef Inj 1,000 MG In NS Inj 100 / 100 100 / 100 100 ML @ 200 mls/hr IV.SIG Q6H [facility] Rx#:[id number] Anesthesia Amount 500 / 500 Output: Estimated Blood Loss 25 / 25 Wound Drainage 80 / 80 40 / 40 # 1 Left Knee Hemovac 80 / 80 40 / 40 Other: Date of Last Bowel Movement 11/12/17 11/12/17 Weight On Admission 63.5 kg - Routine HEENT Exam Comments: N/V intact Negative charles's;no calf tenderness Dressings changed,wound healing well Results - Labs Laboratory Results - last 24 hr 11/13/17 12:00 Blood Type A Positive Antibody Screen Negative MTS Gel Crossmatch See Detail - Imaging Impressions Knee X-Ray 11/13/17 15:22 CONCLUSION: 1. Left knee arthroplasty in anatomic alignment without acute fracture. Assessment and Plan - Ortho Post Op Day # 1 - Assessment and Plan Ortho stable PT/rehab Aspirin 81mg BID x 4 weeks,TEDS for DVT/PE prophylaxsis C RN/PT Discharge home today
[2017-11-14 07:58] LABS: Hematocrit 30.4 % (35.0-46.0)
[2017-11-14] MEDS: Senna/Docusate Sodium 8.6/50 MG Tablet PO SCH ×2 (08:58→20:50)
[2017-11-14] MEDS: Zolpidem Tartrate 5 MG Tablet PO SCH (20:50)
[2017-11-14] MEDS: Acetaminophen 500 MG Tablet PO SCH (20:50)
[2017-11-15] MEDS: Levothyroxine 88 MCG Tablet PO SCH (06:47)
--- NOTE | 2017-11-15 07:37 | P.PNOP ---
Subjective Interval history: pt is doing very well, happy with the knee, minimal pain, ready to go home today Physical Exam Vital signs: Vital Signs 11/14/17 07:54 11/14/17 11:58 11/14/17 15:42 Temperature 97.5 F L 97.6 F 97.8 F Pulse Rate 60 62 61 Respiratory Rate 18 17 18 Blood Pressure 109/57 L 110/56 L 111/67 Pulse Oximetry 94 L 96 97 11/14/17 20:00 11/14/17 21:20 11/15/17 00:00 Temperature 98.0 F 98.4 F Pulse Rate 66 70 Respiratory Rate 18 18 17 Blood Pressure 115/57 L 96/51 L Pulse Oximetry 96 93 L 11/15/17 01:32 Temperature Pulse Rate Respiratory Rate 18 Blood Pressure Pulse Oximetry Intake & Output 11/14/17 11/15/17 11/15/17 18:59 06:59 18:59 Intake Total 1100 / 1100 480 / 480 Balance 1100 / 1100 480 / 480 Intake: IV 100 / 100 Ancef Inj 1,000 MG In NS Inj 100 / 100 100 ML @ 200 mls/hr IV.SIG Q6H [facility] Rx#:[id number] Oral 1000 / 1000 480 / 480 Other: # Voids 4 Date of Last Bowel Movement 11/12/17 11/12/17 Narrative: sitting up in chair comfortably right knee dressing dry and intact no calf tenderness +NVI Results - Labs CBC & Chem 7: 11/14/17 07:20 Laboratory Results - last 24 hr 11/14/17 07:20 Hgb 10.0 L Hct 30.4 L Assessment and Plan - Assessment and Plan POD # 2 s/p R TKA Ortho stable PT/rehab Aspirin 81mg BID x 4 weeks,TEDS for DVT/PE prophylaxsis discharge home today with [facility], orthopedically stable
[2017-11-15 08:17] LABS: Hemoglobin 9.4 gm/dL (11.6-15.3)
[2017-11-15] MEDS: Senna/Docusate Sodium 8.6/50 MG Tablet PO SCH (08:39)
== END 2017-11-15 13:07 | disposition home health service (06) ==
LOC: HSDI 11:20 → N06 16:56
PROVIDERS: ADMIT Orthopaedic Surgery Orthopaedic Surgery of the Spine; ATTEND Orthopaedic Surgery Orthopaedic Surgery of the Spine